=== PATIENT | female | born 1935 | race Caucasian/White ===

== ENCOUNTER 2022-08-20 17:22 | Emergency (ER) | payer MEDICARE, BC, MEDICAID ==
[~2022-08-20] VITALS: Ht 149.8 cm; Wt 47.9 kg
[2022-08-20 18:21] LABS: BASO % 0.2 % (0.0-1.0); EOS # 0.1 10*3/uL (0.0-0.4); EOS % 0.9 % (1.0-4.0); HEMATOCRIT 31.8 % (37.0-47.0); LYMPH # 0.4 10*3/uL (1.3-4.4); LYMPH % 7.8 % (27.0-41.0); MEAN CELL VOLUME 94.1 fl (81.0-99.0); MEAN CORPUSCULAR HGB 31.7 pg (27.0-31.0); MEAN CORPUSCULAR HGB CONC 33.6 g/dl (33.0-37.0); MEAN PLATELET VOLUME 8.8 fl (9.6-12.3); MONO # 0.8 10*3/uL (0.1-1.0); MONO % 14.5 % (3.0-9.0); NEUT # 4.2 10*3/uL (2.3-7.9); NEUT % 76.4 % (47.0-73.0); PLATELET COUNT AUTOMATED 178 10*3/uL (130-400); RED BLOOD COUNT 3.38 10*6/uL (4.10-5.10); RED CELL DISTRI WIDTH 13.2 % (0-14.5); WHITE BLOOD COUNT 5.5 10*3/uL (4.8-10.8)
[2022-08-20 18:21] LABS: ALKALINE PHOSPHATASE 112 U/L (46-116); BUN 10 mg/dl (9-23); CHLORIDE 95 mmol/L (98-107); LIPASE 53 U/L (12-53); SGPT/ALT 23 U/L (10-49); TOTAL PROTEIN 6.2 gm/dL (6.0-8.0)
[2022-08-20 18:31] LABS: ACT PARTIAL THROMBO TIME 35.2 SECONDS (20.0-32.1); INTERNATIONAL NORM RATIO 1.1 (2.0-3.5)
[2022-08-20 18:37] LABS: BILIRUBIN Negative (Negative); BLOOD Negative (Negative); CLARITY Clear (Clear); COLOR Yellow (Yellow); GLUCOSE Negative (Negative); KETONE Negative (Negative); LEUKO ESTERASE 1+ (Negative); NITRITE Negative (Negative); PH 7.5 (4.5-8.0); SPECIFIC GRAVITY <= 1.005 (1.001-1.030); UROBILINOGEN 0.2 E.U./dl (0.0-1.0)
[2022-08-20 19:06] LABS: RBC 0-2 rbc/hpf (0-2)
[2022-08-20 19:07] LABS: EPITHELIAL CELLS 21-30
[2022-08-20] MEDS ORDERED: DEPAKOTE250 MG PO (22:18)
[2022-08-20] MEDS ORDERED: ARICEPT10 M1 PO (22:19)
[2022-08-20] MEDS ORDERED: [UNRECOGNIZED DRUG - OTHER] PO (22:21)
[2022-08-20] MEDS ORDERED: MELATONIN PO (22:21)
[2022-08-20] MEDS ORDERED: VISTARIL25 MG PO (22:22)
[2022-08-20] MEDS ORDERED: ZOLOFT50 MG PO ×2 (22:22)
[2022-08-20] MEDS ORDERED: NAMENDA5 M1 PO (22:23)
[2022-08-20] MEDS ORDERED: ASPIRIN CHEWABL81 MG PO (22:50)
[2022-08-20] MEDS ORDERED: CLARITIN10 MG PO (22:51)
[2022-08-20] MEDS ORDERED: COREG6.25 MG PO (22:51)
[2022-08-20] MEDS ORDERED: VITAMIN D325 MCG PO (22:53)
[2022-08-29] MEDS ORDERED: MUCINEX ER600 MG PO (09:23)
[2022-08-29] MEDS ORDERED: DOXYCYCLINE MO100 MG PO ×2 (09:23→09:30)
[2022-08-29] MEDS ORDERED: RIVASTIGMINE1 EAC2 T (09:39)
[2022-08-29] MEDS ORDERED: MIRTAZAPINE15 M2 PO (09:39)
[2022-08-29] MEDS ORDERED: RISPERIDONE1 MG PO (09:39)
[2022-08-29] MEDS ORDERED: MEMANTINE HCL10 MG PO (09:39)
== END 2022-08-20 22:08 ==
LOC: ED 17:22
PROVIDERS: Emergency Medicine
DX: F63.81 Intermittent explosive disorder (principal); J18.9 Pneumonia, unspecified organism; F41.9 Anxiety disorder, unspecified; F03.90 Unspecified dementia, unspecified severity, without behavioral disturbance, psychotic disturbance, mood disturbance, and anxiety; I25.10 Atherosclerotic heart disease of native coronary artery without angina pectoris